=== PATIENT | male | born 1945 | race Caucasian/White ===

== ENCOUNTER 2016-10-21 01:18 | Emergency (ER) ==
[2016-10-21] MEDS ORDERED: DUONEB (A & A) INH ONE (01:25)
--- NOTE | 2016-10-21 01:28 | PROVIDER DOCUMENTATION ---
HPI-General Adult - General Stated Complaint: PRODUCTIVE COUGH Time Seen by Provider: 10/21/16 01:25 Source: patient Allergies/Adverse Reactions: Patient Allergies Allergy/AdvReac Type Severity Reaction Status Date / Time No Known Allergies Allergy Verified 10/21/16 01:41 Home Medications: No Home Medications 10/21/16 - History of Present Illness -Gen Adult Nature of Presenting Problems: 71 y/o m presents to the ed with sob and also lethargic. pt states he was hanging out at the [employer] [facility] and one of the workers noticed him wheezing and having sob so she called ems. upon arrival pt was wheezing and c/o upper dorsal shoulder pain. Location of Pain/Injury: reports: upper extremity (right shoulder) Pain Radiation: reports: no radiation Quality of Pain: reports: aching Severity: reports: mild Onset/Duration: reports: just prior to arrival Timing: reports: still present Associated Symptoms: reports: shortness of breath Similar Symptoms Previously?: No Recently seen or treated by another doctor?: No Review of Systems - Adult - REVIEW OF SYSTEMS - ADULT Constitutional: denies: chills, fever Respiratory: reports: shortness of breath. denies: wheezing Neurological: denies: dizziness/vertigo, headache/migraines Past History - Adult - PAST MEDICAL HISTORY-ADULT Review of Records: reports: Old Records Reviewed, Nursing Assessment Review, Medications Reviewed - IMMUNIZATION STATUS Childhood Immunizations: See Nurse Assessment Flu Vaccine: See Nurse Assessment - SOCIAL HISTORY Smoking: non-smoker Substance Use: none/never Alcohol Use Frequency: never Physical Exam-General - PHYSICAL EXAM-ADULT Initial Vital Signs Reviewed: Yes - CONSTITUTIONAL General Appearance: alert, lethargic - EYES Eyes: PERRL/EOMI, pink conjunctivae, fundi clear, no AV nicking - HEAD, EARS, NOSE, MOUTH & THROAT HENMT: normocephalic/atraumatic, moist mucous membranes, normal ENT inspection - NECK Neck: non-tender, full range of motion, supple - RESPIRATORY Respiratory: chest non-tender, wheezing - CARDIOVASCULAR Cardiovascular: normal peripheral pulses, regular rate, rhythm - GASTROINTESTINAL (ABDOMEN) Abdominal Exam: normal bowel sounds, non tender, soft - SKIN Integumentary: normal color, normal turgor, warm/dry Progress - PLAN OF CARE/RESULTS Progress/Plan/Lab Results: plan of care: labs, imaging, medication Laboratory Tests 10/21/16 01:50 WBC 6.47 RBC 4.92 Hgb 15.2 Hct 45.2 MCV 91.9 MCH 30.9 MCHC 33.6 RDW Std Deviation 13.1 Plt Count 157 MPV 10.0 Neut % (Auto) 67.0 Lymph % (Auto) 15.5 L [place] % (Auto) 14.8 H Eos % (Auto) 2.5 Baso % (Auto) 0.2 Neut # (Auto) 4.34 Lymph # (Auto) 1.00 L [place] # (Auto) 0.96 H Eos # (Auto) 0.16 Baso # (Auto) 0.01 Orders Category Date Time Status Cardiac Monitoring DIRECTED Care 10/21/16 01:23 Active Saline Loc NOW Care 10/21/16 01:23 Inactive CHEST-PORTABLE [RAD] Stat Exams 10/21/16 01:24 Taken CBC WITH ELECTRONIC DIFF [HEME] Stat Lab 10/21/16 01:50 Completed CK PROFILE [SP CHEM] Stat Lab 10/21/16 01:50 Received COMPREHENSIVE METABOLIC PANEL [CHEM] Stat Lab 10/21/16 01:50 Received PRO B-NATRIURETIC PEPTIDE Stat Lab 10/21/16 01:50 Received TROPONIN T Stat Lab 10/21/16 01:50 Received Albuterol 2.5MG/Ipratrop 0.5MG [Duoneb (A & A)] Med 10/21/16 01:25 Discontinued 3 ml INH NOW ONE Aerosol Treatments Routine Oth 10/21/16 01:26 Completed Aerosol Treatments Stat Oth 10/21/16 01:26 Completed EKG [EKG] Stat Ther 10/21/16 01:23 Ordered Vital Signs - 24 hr 10/21/16 10/21/16 01:34 02:00 Temperature 98.5 F Pulse Rate 92 H 88 Respiratory 24 16 Rate Blood Pressure 164/83 O2 Sat by Pulse 95 Oximetry - EKG 1 Time of EKG reading by physician:: 02:04 EKG Read and Signed by:: Albert Em Rate: 83 Rhythm: NSR [place]: normal QRS: normal MA Interval: normal - XRAY 1 XRAY Study: Chest XRAY Interpretation: NAD Departure - Departure Time of Disposition Order: 02:08 DIAGNOSIS: Asthmatic bronchitis Qualifiers: Asthma severity: unspecified severity Asthma complication type: with acute exacerbation Qualified Code(s): J45.901 - Unspecified asthma with (acute) exacerbation Disposition: HOME 01 Certified Medical Emergency: Emergent Condition: Stable Additional Instructions: ED Follow Up Instructions: You have been treated by a care provider in the Emergency Department. These instructions are being provided to you so you can have an understanding of how to care for yourself upon discharge. Upon discharge from the Emergency Department, you are responsible for making arrangements for follow-up care by a physician of your choice. Take all prescribed medications as directed. Return to the Emergency Department immediately for any new or worsening symptoms. You may call the Physician Referral phone number at [phone] to obtain a list of Physicians who are taking new patients. Attestation - Scribe Verification/Attestation Scribe:: Bethany Cerna Acting as Scribe for:: Louie Wilkinson Scribe documention review:: This chart was documented by a scribe and accurately reflects the service the provider performed and the decisions made by the provider.
[2016-10-21 02:01] LABS: MANUAL DIFF NEEDED? NO
[2016-10-21 02:04] LABS: BASO% 0.2 % (0.0-0.8); EOS# 0.16 X1000 (0.0-0.7); EOS% 2.5 % (0.0-10.0); HEMATOCRIT 45.2 % (42.0-52.0); HEMOGLOBIN 15.2 g/dL (14.0-18.0); LYMPH% 15.5 % (20.5-51.1); MCH 30.9 PG (27-31); MCHC 33.6 g/dL (33-37); MCV 91.9 FL (81-99); MONO# 0.96 X1000 (0.11-0.59); MONO% 14.8 % (1.7-9.3); PLT 157 X1000 (130-400); RBC 4.92 XMIL (4.7-6.1)
[2016-10-21] MEDS ORDERED: DECADRON IM ONE (02:08)
[2016-10-21 02:32] LABS: AGAP 13; ALBUMIN 3.7 g/dL (3.5-5.0); ALKALINE PHOSPHATASE 106 U/L (32-122); BUN 13 mg/dL (8-22); CALCIUM 8.6 mg/dL (8.8-10.2); CHLORIDE 95 mmol/L (98-107); COSMO 265; GOT 41 U/L (10-34); GPT 35 U/L (10-44); POTASSIUM 4.3 mmol/L (3.5-5.1); SODIUM 131 mmol/L (136-145); TCO2 23 mmol/L (25-35); TOTAL BILIRUBIN 0.31 mg/dL (0.20-1.00); TOTAL PROTEIN 6.5 g/dL (6.3-8.3)
[2016-10-21 02:38] LABS: CK PROFILE 307 U/L (24-204)
[2016-10-21 02:49] VITALS: BP 169/89
[2016-10-21 02:57] LABS: CK INDEX 1.2 (0.0-2.5); CK-MB 3.59 ng/mL (0.0-5.0)
--- NOTE | 2016-10-21 05:26 | EKG Report ---
Test Performed on : 10/21/2016 02:01:32 AM Test Reason : SOB Blood Pressure : / mmHG Vent. Rate : 083 BPM Atrial Rate : 083 BPM P-R Int : 154 ms QRS Dur : 096 ms QT Int : 360 ms P-R-T Axes : 026 -17 038 degrees QTc Int : 423 ms Normal sinus rhythm. Inferior infarct , age undetermined Abnormal ECG No previous ECGs available Unconfirmed Result
--- NOTE | 2016-10-21 07:38 | Diag Imaging Result Document ---
PROCEDURE NAME: CHEST-PORTABLE - 10/21/2016 AP PORTABLE CHEST, ERECT: TIME: 0150 hours. FINDINGS: There is some increased interstitial markings. No previous studies are available for comparison. The heart size is the upper limits of normal, and there is prominence of the central pulmonary vascularity. IMPRESSION: Mild interstitial pulmonary edema.
== END 2016-10-21 02:58 | disposition home or self-care (01) ==
LOC: EDBD → ED 01:18
DX: J45.901 Unspecified asthma with (acute) exacerbation (principal); R05 Cough; R09.3 Abnormal sputum; R06.02 Shortness of breath; R53.83 Other fatigue; R06.2 Wheezing; M25.511 Pain in right shoulder
CPT/HCPCS: 71010; 80053; 82550; 82553; 83880; 84484; 85025; 93005; 94640; 96372

== ENCOUNTER 2016-12-12 13:46 | Emergency (ER) | payer OTHER ==
[2016-12-12 14:00] VITALS: BP 146/72
--- NOTE | 2016-12-12 14:20 | PROVIDER DOCUMENTATION ---
HPI-General Adult - General Chief Complaint: Shoulder Pain Stated Complaint: shoulder pain Time Seen by Provider: 12/12/16 13:59 Source: patient Allergies/Adverse Reactions: Patient Allergies Allergy/AdvReac Type Severity Reaction Status Date / Time No Known Allergies Allergy Verified 12/12/16 14:00 Home Medications: Home Medication List Medication Instructions Recorded Confirmed Last Taken Type Amlodipine [Norvasc] 5 mg PO DAILY #30 tablet 11/18/16 12/12/16 Rx Lisinopril 20 mg PO DAILY #30 tablet 11/18/16 12/12/16 Rx Metformin [Glucophage] 500 mg PO BID CC #60 tablet 11/18/16 12/12/16 Rx - History of Present Illness -Gen Adult Nature of Presenting Problems: Pt is 71 y/o M presents to the ED with bilateral shoulder pain. Pt states history of gout. Pt denies recent trauma or injury to shoulders. Pt states he needs his monthly meds. Location of Pain/Injury: reports: upper extremity (bilateral shoulders) Pain Radiation: reports: no radiation Quality of Pain: reports: aching Severity: reports: mild Onset/Duration: reports: unsure Timing: reports: still present Context/Activities at Onset: reports: light activity Modifying Factors: improves with: nothing Associated Symptoms: reports: denies symptoms Similar Symptoms Previously?: Yes Recently seen or treated by another doctor?: No Review of Systems - Adult - REVIEW OF SYSTEMS - ADULT Constitutional: denies: chills, fever Eyes: denies: blurred vision, double vision Ears, Nose, Mouth & Throat: denies: ear pain, nose pain, throat pain Cardiovascular: denies: chest pain, heart murmur, irregular heart rate Respiratory: denies: cough, shortness of breath, wheezing Gastrointestinal: denies: abdominal pain, diarrhea, nausea, vomiting Genitourinary: denies: dysuria, hematuria Musculoskeletal: reports: other (bilateral shoulder pain). denies: bone pain, joint pain, neck pain Integumentary: denies: hives, itching Neurological: denies: dizziness/vertigo, headache/migraines Psychiatric: reports: no symptoms reported Endocrine: reports: no symptoms reported Hematologic/Lymphatic: reports: no symptoms reported Allergic/Immunologic: reports: no symptoms reported All Other Systems: Reviewed and Negative Past History - Adult - PAST MEDICAL HISTORY-ADULT Review of Records: reports: Nursing Assessment Review, Medications Reviewed, Social history reviewed & non-contributory. Major Childhood Illnesses: reports: denies history Cardiovascular: reports: cardiac disease, CAD, CHF, HTN Respiratory: reports: COPD Gastrointestinal: reports: denies history Obstetrical/Gynecological: reports: denies history Genitourinary: reports: denies history Musculoskeletal: reports: chronic pain (back), neck/back injury Neurological: reports: denies history Psychiatric: reports: schizophrenia Endocrine/Immune: reports: Diabetes Other Conditions: reports: denies history - PRIOR SURGERIES/PROCEDURES Surgical/Procedure History: reports: appendectomy, cardiac stent - PRIOR HOSPITALIZATIONS Prior Hospitalizations: reports: for similar symptoms, for other non-related, psychiatric or rehab - IMMUNIZATION STATUS Childhood Immunizations: See Nurse Assessment Flu Vaccine: See Nurse Assessment - FAMILY HISTORY Family History: reviewed, not pertinent - SOCIAL HISTORY Smoking: cigarettes, greater than 1 pack/day Provider spent 3-5 mins advising pt. on dangers of tobacco.: Discussed manners to quit use, and f/u contacts for add'l counseling. Substance Use: denies Living Situation: family Physical Exam-General - PHYSICAL EXAM-ADULT Initial Vital Signs Reviewed: Yes - CONSTITUTIONAL General Appearance: appears well, alert, no apparent distress - EYES Eyes: PERRL/EOMI, pink conjunctivae, fundi clear, no AV nicking - HEAD, EARS, NOSE, MOUTH & THROAT HENMT: normocephalic/atraumatic, moist mucous membranes, normal ENT inspection, TMs normal, pharynx normal - NECK Neck: non-tender, full range of motion, supple, normal inspection - RESPIRATORY Respiratory: chest non-tender, lungs clear, normal breath sounds, no pleuratic chest pain, no respiratory distress, no accessory muscle use - CARDIOVASCULAR Cardiovascular: normal peripheral pulses, regular rate, rhythm, no edema, no gallop, no JVD, no murmur - GASTROINTESTINAL (ABDOMEN) Abdominal Exam: normal bowel sounds, non tender, soft, no organomegaly, no pulsatile mass - LYMPHATIC Lymphatic: no adenopathy - MUSCULOSKELETAL Back Exam: normal inspection, no CVA tenderness, no vertebral tenderness Extremity: normal range of motion, non-tender, normal gait, normal inspection, no pedal edema, no calf tenderness - SKIN Integumentary: normal color, normal turgor, warm/dry - NEUROLOGIC 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: 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, grossly normal, no motor/sensory deficits - PSYCHIATRIC Psych/Mental Status: normal mood/affect, normal thought content, normal thought process, oriented x 3 Progress - PLAN OF CARE/RESULTS Progress/Plan/Lab Results: Vital Signs - 24 hr 12/12/16 13:48 Pulse Rate 83 Respiratory 20 Rate Blood Pressure 146/72 O2 Sat by Pulse 96 Oximetry Orders Category Date Time Status FSBS [Finger Stick Blood Sugar (ED)] DIRECTED Care 12/12/16 14:21 Inactive Departure - Departure Time of Disposition Order: 14:26 DIAGNOSIS: Shoulder pain, bilateral Qualifiers: Chronicity: unspecified Qualified Code(s): M25.511 - Pain in right shoulder; M25.512 - Pain in left shoulder Disposition: HOME 01 Certified Medical Emergency: Emergent Condition: Stable Additional Instructions: ED Follow Up Instructions: You have been treated by a care provider in the Emergency Department. These instructions are being provided to you so you can have an understanding of how to care for yourself upon discharge. Upon discharge from the Emergency Department, you are responsible for making arrangements for follow-up care by a physician of your choice. Take all prescribed medications as directed. Return to the Emergency Department immediately for any new or worsening symptoms. You may call the Physician Referral phone number at [phone] to obtain a list of Physicians who are taking new patients. Attestation - Scribe Verification/Attestation Scribe:: Magnolia Corbin Acting as Scribe for:: James Ovalle Scribe documention review:: This chart was documented by a scribe and accurately reflects the service the provider performed and the decisions made by the provider.
== END 2016-12-12 15:03 | disposition home or self-care (01) ==
LOC: P.ED 13:46
DX: M25.512 Pain in left shoulder (principal); M25.511 Pain in right shoulder; I25.10 Atherosclerotic heart disease of native coronary artery without angina pectoris; I10 Essential (primary) hypertension; J44.9 Chronic obstructive pulmonary disease, unspecified; G89.29 Other chronic pain; M54.9 Dorsalgia, unspecified; E11.9 Type 2 diabetes mellitus without complications; F17.210 Nicotine dependence, cigarettes, uncomplicated; Z71.6 Tobacco abuse counseling; Z95.5 Presence of coronary angioplasty implant and graft
CPT/HCPCS: 99282

== ENCOUNTER 2016-12-17 09:08 | Emergency (ER) | payer OTHER ==
--- NOTE | 2016-12-17 09:43 | PROVIDER DOCUMENTATION ---
HPI-Musculoskeletal Pain/Inj - GENERAL Source: patient - HX OF PRESENT ILLNESS-MUSKULOSKELTAL Quality of Pain: reports: aching Severity in ED: mild Onset/Duration: unsure Timing: still present, intermittent Modifying Factors: improves with: nothing Any recent injury?: No Locality of Occurance: Home Similar Symptoms Previously?: Yes Recently seen or treated by another doctor?: No - FALL INJURY Location of Pain/Injury: reports: none - UPPER EXTREMITY PAIN/INJURY Extremities Pain Location: shoulder: right Context / Method of Injury: reports: unknown Associated Symptoms: reports: weakness in upper ext (L shoulder) <Magnolia Corbin - Last Filed: 12/17/16 10:02> <Moise Reinoso - Last Filed: 12/17/16 10:29> - GENERAL Chief Complaint: Return/Recheck Stated Complaint: RETURN/RECHECK Time Seen by Provider: 12/17/16 09:37 - HX OF PRESENT ILLNESS-MUSKULOSKELTAL Nature of Presenting Problem: Pt is 71 y/o M presents to the ED with R shoulder pain. Pt states the shoulder pain is chronic. Pt denies recent injury or trauma. (Magnolia Corbin) Review of Systems - Adult - REVIEW OF SYSTEMS - ADULT Constitutional: denies: chills, fever Eyes: denies: blurred vision, double vision Ears, Nose, Mouth & Throat: denies: ear pain, nose pain, throat pain Cardiovascular: denies: chest pain, heart murmur, irregular heart rate Respiratory: denies: cough, shortness of breath, wheezing Gastrointestinal: denies: abdominal pain, diarrhea, nausea, vomiting Genitourinary: denies: dysuria, hematuria Musculoskeletal: reports: other (R shoulder). denies: bone pain, joint pain, neck pain Integumentary: denies: hives, itching Neurological: denies: dizziness/vertigo, headache/migraines Psychiatric: reports: no symptoms reported Endocrine: reports: no symptoms reported Hematologic/Lymphatic: reports: no symptoms reported Allergic/Immunologic: reports: no symptoms reported All Other Systems: Reviewed and Negative <Magnolia Corbin - Last Filed: 12/17/16 10:02> Past History - Adult - PAST MEDICAL HISTORY-ADULT Review of Records: reports: Nursing Assessment Review, Medications Reviewed, Social history reviewed & non-contributory. Major Childhood Illnesses: reports: denies history Cardiovascular: reports: cardiac disease, CAD, CHF, HTN Respiratory: reports: COPD Gastrointestinal: reports: denies history Obstetrical/Gynecological: reports: denies history Genitourinary: reports: denies history Musculoskeletal: reports: chronic pain (back), neck/back injury Neurological: reports: denies history Psychiatric: reports: schizophrenia Endocrine/Immune: reports: Diabetes Other Conditions: reports: denies history - PRIOR SURGERIES/PROCEDURES Surgical/Procedure History: reports: appendectomy, cardiac stent - PRIOR HOSPITALIZATIONS Prior Hospitalizations: reports: for similar symptoms, for other non-related, psychiatric or rehab - IMMUNIZATION STATUS Childhood Immunizations: See Nurse Assessment Flu Vaccine: See Nurse Assessment - FAMILY HISTORY Family History: reviewed, not pertinent - SOCIAL HISTORY Smoking: cigarettes, less than 1 pack/day Provider spent 3-5 mins advising pt. on dangers of tobacco.: Discussed manners to quit use, and f/u contacts for add'l counseling. Substance Use: denies Living Situation: family <Torres Corbini - Last Filed: 12/17/16 10:02> Physical Exam-Injury Related - Physical Exam-Injury Related Initial Vital Signs Reviewed: Yes General Appearance: appears well, alert, no apparent distress Eyes: PERRL/EOMI, pink conjunctivae, fundi clear, no AV nicking Head, Ears, Nose, Mouth & Throat: normocephalic/atraumatic, moist mucous membranes, normal ENT inspection, TMs normal, pharynx normal Neck: non-tender, full range of motion, supple, normal inspection Respiratory: chest non-tender, lungs clear, normal breath sounds, no pleuratic chest pain, no respiratory distress, no accessory muscle use Cardiovascular: normal peripheral pulses, regular rate, rhythm, no edema, no gallop, no JVD, no murmur Abdominal Exam: normal bowel sounds, non tender, soft, no organomegaly, no pulsatile mass Lymphatic: no adenopathy Back Exam: normal inspection, no CVA tenderness, no vertebral tenderness Extremity: normal gait, normal inspection, no pedal edema, no calf tenderness, normal capillary refill, pelvis stable, tenderness (R shoulder). 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, grossly normal, no motor/sensory deficits Psych/Mental Status: normal mood/affect, normal thought content, normal thought process, oriented x 3 <Magnolia Corbin - Last Filed: 12/17/16 10:02> Progress <Magnolia Corbin - Last Filed: 12/17/16 10:02> <Moise Reinoso - Last Filed: 12/17/16 10:29> - PLAN OF CARE/RESULTS Progress/Plan/Lab Results: Vital Signs - 24 hr 12/17/16 09:12 Temperature 97.8 F Pulse Rate 84 Respiratory 18 Rate Blood Pressure 138/81 O2 Sat by Pulse 97 Oximetry (Magnolia Corbin) Departure - Departure Time of Disposition Order: 10:03 Certified Medical Emergency: Emergent <Magnolia Corbin - Last Filed: 12/17/16 10:02> - Departure Time of Disposition Order: 10:29 Certified Medical Emergency: Emergent <Moise Reinoso - Last Filed: 12/17/16 10:29> - Departure DIAGNOSIS: Chronic shoulder pain Qualifiers: Laterality: right Qualified Code(s): M25.511 - Pain in right shoulder Disposition: HOME 01 Condition: Stable Additional Instructions: ED Follow Up Instructions: You have been treated by a care provider in the Emergency Department. These instructions are being provided to you so you can have an understanding of how to care for yourself upon discharge. Upon discharge from the Emergency Department, you are responsible for making arrangements for follow-up care by a physician of your choice. Take all prescribed medications as directed. Return to the Emergency Department immediately for any new or worsening symptoms. You may call the Physician Referral phone number at [phone] to obtain a list of Physicians who are taking new patients. Referrals: None,PCP [Primary Care Provider] - Luz Millard DO [STAFF PHYSICIAN] - Attestation - Scribe Verification/Attestation Scribe:: Magnolia Corbin Acting as Scribe for:: Moise Reinoso Scribe documention review:: This chart was documented by a scribe and accurately reflects the service the provider performed and the decisions made by the provider. <Magnolia Corbin - Last Filed: 12/17/16 10:02> Physician Attestation
[2016-12-17] MEDS ORDERED: DEPO-MEDROL IM ONE (09:50)
[2016-12-17 10:45] VITALS: BP 126/064
== END 2016-12-17 10:44 | disposition home or self-care (01) ==
LOC: P.ED 09:08
DX: G89.29 Other chronic pain (principal); M25.511 Pain in right shoulder; M62.81 Muscle weakness (generalized); I25.10 Atherosclerotic heart disease of native coronary artery without angina pectoris; I10 Essential (primary) hypertension; J44.9 Chronic obstructive pulmonary disease, unspecified; M54.9 Dorsalgia, unspecified; E11.9 Type 2 diabetes mellitus without complications; F17.210 Nicotine dependence, cigarettes, uncomplicated; Z71.6 Tobacco abuse counseling; Z95.5 Presence of coronary angioplasty implant and graft
CPT/HCPCS: 82948; 96372; J1040

== ENCOUNTER 2016-12-18 10:20 | Emergency (ER) | payer OTHER ==
[2016-12-18 11:06] LABS: MANUAL DIFF NEEDED? NO
[2016-12-18 11:09] LABS: BASO% 0.2 % (0.0-0.8); EOS% 2.5 % (0.0-10.0); HEMATOCRIT 46.5 % (42.0-52.0); HEMOGLOBIN 16.2 g/dL (14.0-18.0); IMM GRAN# 0.03 X1000 (0.0-0.04); IMM GRAN% 0.4 % (0.0-0.5); LYMPH# 2.01 X1000 (1.2-3.4); MCH 29.9 PG (27-31); MCHC 34.8 g/dL (33-37); MONO# 0.72 X1000 (0.11-0.59); MONO% 8.9 % (1.7-9.3); MPV 9.7 FL (7.4-10.4); PLT 210 X1000 (130-400); RBC 5.41 XMIL (4.7-6.1)
--- NOTE | 2016-12-18 11:22 | Diag Imaging Result Document ---
PROCEDURE NAME: TRAUMA SHOULDER RIGHT - 12/18/2016 RIGHT SHOULDER THREE VIEWS INCLUDING AN AXILLARY Y-VIEW: COMPARISON: Compared to 11/14/2016. FINDINGS: No separation at the acromioclavicular joint. No fracture. No dislocation. No change in appearance compared to the prior exam. There are mild arthritic changes. IMPRESSION: Stable exam.
[2016-12-18 11:25] LABS: AGAP 16; ALBUMIN 4.1 g/dL (3.5-5.0); ALKALINE PHOSPHATASE 102 U/L (32-122); BUN 6 mg/dL (8-22); CALCIUM 8.7 mg/dL (8.8-10.2); CHLORIDE 96 mmol/L (98-107); COSMO 268; GOT 23 U/L (10-34); GPT 26 U/L (10-44); POTASSIUM 4.6 mmol/L (3.5-5.1); SODIUM 134 mmol/L (136-145); TCO2 22 mmol/L (25-35); TOTAL BILIRUBIN 0.28 mg/dL (0.20-1.00); TOTAL PROTEIN 6.8 g/dL (6.3-8.3)
--- NOTE | 2016-12-18 11:38 | PROVIDER DOCUMENTATION ---
HPI-Psychological Disorder - General Chief Complaint: Psych Stated Complaint: RT SHOULDER PAIN Time Seen by Provider: 12/18/16 10:29 Source: patient Allergies/Adverse Reactions: Patient Allergies Allergy/AdvReac Type Severity Reaction Status Date / Time No Known Allergies Allergy Verified 12/12/16 14:00 Home Medications: Home Medication List Medication Instructions Recorded Confirmed Last Taken Type Amlodipine [Norvasc] 5 mg PO DAILY #30 tablet 11/18/16 12/12/16 Rx Lisinopril 20 mg PO DAILY #30 tablet 11/18/16 12/12/16 Rx Metformin [Glucophage] 500 mg PO BID CC #60 tablet 11/18/16 12/12/16 Rx Methocarbamol [Robaxin-750] 1,500 mg PO Q6-8H PRN PRN #40 12/12/16 Unknown Rx tablet Nitroglycerin 0.4 mg SL 3-4XDAY PRN PRN #50 12/12/16 Unknown Rx tab.subl - History of Present Illness-Psych Nature of Presenting Problem: Pt is a 71 y/o M c chief complaint of R shoulder pain that is chronic in nature , emotional distress, and suicidal thoughts. Pt is brought to the ER by his friend who states the pt lives in a trailer [place] his [place]. Today the friend was checking on him and the pt was stating he was going to kill himself because he was tired of living with the pain in his shoulder. Friend states the pt was also speaking in rapid manner and was not able to hold a conversation. Per friends, pt has a h/o mental health disorder. On arrival, pt is tearful and speaking in flight of ideas. Review of Systems - Adult - REVIEW OF SYSTEMS - ADULT Constitutional: reports: no symptoms reported. denies: chills, fatique Eyes: reports: no symptoms reported. denies: blurred vision, double vision Ears, Nose, Mouth & Throat: reports: no symptoms reported. denies: ear pain, nose pain Cardiovascular: reports: no symptoms reported. denies: chest pain, irregular heart rate Respiratory: reports: no symptoms reported. denies: cough, shortness of breath Gastrointestinal: reports: no symptoms reported. denies: abdominal pain, nausea Genitourinary: reports: no symptoms reported. denies: dysuria, flank pain, frequent UTI's Musculoskeletal: reports: bone pain, joint pain Integumentary: reports: no symptoms reported. denies: itching, rash Neurological: reports: no symptoms reported. denies: numbness, paresthesia Psychiatric: reports: anxiety, alcohol/drug dependence, depression, emotional problems, panic attacks, suicidal thoughts Endocrine: reports: no symptoms reported Hematologic/Lymphatic: reports: no symptoms reported Allergic/Immunologic: reports: no symptoms reported All Other Systems: Reviewed and Negative Past History - Adult - PAST MEDICAL HISTORY-ADULT Review of Records: reports: Old Records Reviewed, Nursing Assessment Review, Medications Reviewed, Social history reviewed & non-contributory. Major Childhood Illnesses: reports: denies history Cardiovascular: reports: cardiac disease, CAD, CHF, HTN Respiratory: reports: COPD Gastrointestinal: reports: denies history Obstetrical/Gynecological: reports: denies history Genitourinary: reports: denies history Musculoskeletal: reports: chronic pain (back), neck/back injury Neurological: reports: denies history Psychiatric: reports: schizophrenia Endocrine/Immune: reports: Diabetes Other Conditions: reports: denies history - PRIOR SURGERIES/PROCEDURES Surgical/Procedure History: reports: appendectomy, cardiac stent - PRIOR HOSPITALIZATIONS Prior Hospitalizations: reports: for similar symptoms, for other non-related, psychiatric or rehab - IMMUNIZATION STATUS Childhood Immunizations: See Nurse Assessment Flu Vaccine: See Nurse Assessment - FAMILY HISTORY Family History: reviewed, not pertinent Physical Exam-Psych Focus - Physical Exam-Psych Initial Vital Signs Reviewed: Yes Appearance: no apparent distress, anxious, impaired insight (flight of ideas, circular thought patterns, unable to focus on questions) 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 nml as tested, agitated, anxious Behavior/Eye Contact/Speech: cooperative, avoids eye contact, increased rate of speech, compulsive Thoughts/Hallucinations: flight of ideas HENMT: normocephalic/atraumatic, moist mucous membranes, normal ENT inspection Neck: non-tender, full range of motion, supple Respiratory: chest non-tender, lungs clear, normal breath sounds Cardiovascular: normal peripheral pulses, regular rate, rhythm, no edema Abdominal Exam: normal bowel sounds, non tender, soft Lymphatic: no adenopathy Back Exam: normal inspection, no CVA tenderness, no vertebral tenderness Extremity: normal range of motion, non-tender, normal gait, other (NO SHOULDER PAIN OR LIMITATIONS IN ROM) Integumentary: normal color, normal turgor, warm/dry Progress - PLAN OF CARE/RESULTS Progress/Plan/Lab Results: Orders Category Date Time Status Regular Diet Diet 12/18/16 12:34 Active CHEST-PORTABLE [RAD] Stat Exams 12/18/16 11:48 Completed HEAD W/O CONTRAST [CT] Stat Exams 12/18/16 11:48 Completed TRAUMA SHOULDER RIGHT [RAD] Stat Exams 12/18/16 10:29 Completed ALCOHOL BLOOD Stat Lab 12/18/16 10:56 Completed CBC WITH ELECTRONIC DIFF [HEME] Stat Lab 12/18/16 10:56 Completed COMPREHENSIVE METABOLIC PANEL [CHEM] Stat Lab 12/18/16 10:56 Completed FOLATE Stat Lab 12/18/16 11:51 Completed FREE T4 Stat Lab 12/18/16 10:56 Completed MAGNESIUM [CHEM] Stat Lab 12/18/16 11:51 Completed RPR [SERO] Stat Lab 12/18/16 11:51 Completed TSH Stat Lab 12/18/16 10:56 Completed URINALYSIS W/POSS RFLX CULT [URINALYSIS] Stat Lab 12/18/16 11:51 Completed URINE DRUG SCREEN Stat Lab 12/18/16 11:51 Completed VITAMIN B12 Stat Lab 12/18/16 10:56 Completed EKG [EKG] Stat Ther 12/18/16 11:47 Ordered Laboratory Tests 12/18/16 12/18/16 12/18/16 10:56 10:56 10:56 WBC 8.05 RBC 5.41 Hgb 16.2 Hct 46.5 MCV 86.0 MCH 29.9 MCHC 34.8 RDW Std Deviation 13.4 Plt Count 210 MPV 9.7 Immature Gran % (Auto) 0.4 Neut % (Auto) 63.0 Lymph % (Auto) 25.0 [place] % (Auto) 8.9 Eos % (Auto) 2.5 Baso % (Auto) 0.2 Immature Gran # (Auto) 0.03 Neut # (Auto) 5.07 Lymph # (Auto) 2.01 [place] # (Auto) 0.72 H Eos # (Auto) 0.20 Baso # (Auto) 0.02 Sodium 134 L Potassium 4.6 Chloride 96 L Carbon Dioxide 22 L Anion Gap 16 BUN 6 L Creatinine 0.8 Estimated GFR/1.73 m2 > 60 BUN/Creatinine Ratio 8 Glucose 134 H Calculated Osmolality 268 Calcium 8.7 L Magnesium Total Bilirubin 0.28 AST 23 ALT 26 Alkaline Phosphatase 102 Total Protein 6.8 Albumin 4.1 Globulin 2.7 Albumin/Globulin Ratio 1.5 Vitamin B12 Folate TSH Free T4 Urine Source Urine Color Urine Turbidity Urine pH Ur Specific [place] Urine Protein Ur Glucose (Stick) Ur Ketones (Stick) Urine Blood Urine Nitrite Urine Bilirubin Urobilinogen Dipstick Urine Leukocytes Urine WBC (Auto) Urine RBC (Auto) U Epithel Cells (Auto) Urine Bacteria (Auto) Urine Opiates Screen Ur Oxycodone Screen Ur Methadone, Qual Ur Barbiturates Screen Ur Phencyclidine Scrn Ur Amphetamines Screen U Benzodiazepines Scrn Urine Cocaine Screen U Cannabinoids Screen Plasma/Serum Ethyl Alc RPR 12/18/16 12/18/16 12/18/16 10:56 11:51 11:51 WBC RBC Hgb Hct MCV MCH MCHC RDW Std Deviation Plt Count MPV Immature Gran % (Auto) Neut % (Auto) Lymph % (Auto) [place] % (Auto) Eos % (Auto) Baso % (Auto) Immature Gran # (Auto) Neut # (Auto) Lymph # (Auto) [place] # (Auto) Eos # (Auto) Baso # (Auto) Sodium Potassium Chloride Carbon Dioxide Anion Gap BUN Creatinine Estimated GFR/1.73 m2 BUN/Creatinine Ratio Glucose Calculated Osmolality Calcium Magnesium 2.1 Total Bilirubin AST ALT Alkaline Phosphatase Total Protein Albumin Globulin Albumin/Globulin Ratio Vitamin B12 260 Folate 19.5 TSH 0.56 Free T4 1.23 Urine Source Urine Color Urine Turbidity Urine pH Ur Specific [place] Urine Protein Ur Glucose (Stick) Ur Ketones (Stick) Urine Blood Urine Nitrite Urine Bilirubin Urobilinogen Dipstick Urine Leukocytes Urine WBC (Auto) Urine RBC (Auto) U Epithel Cells (Auto) Urine Bacteria (Auto) Urine Opiates Screen Ur Oxycodone Screen Ur Methadone, Qual Ur Barbiturates Screen Ur Phencyclidine Scrn Ur Amphetamines Screen U Benzodiazepines Scrn Urine Cocaine Screen U Cannabinoids Screen Plasma/Serum Ethyl Alc RPR 12/18/16 12/18/16 12/18/16 11:51 11:51 11:51 WBC RBC Hgb Hct MCV MCH MCHC RDW Std Deviation Plt Count MPV Immature Gran % (Auto) Neut % (Auto) Lymph % (Auto) [place] % (Auto) Eos % (Auto) Baso % (Auto) Immature Gran # (Auto) Neut # (Auto) Lymph # (Auto) [place] # (Auto) Eos # (Auto) Baso # (Auto) Sodium Potassium Chloride Carbon Dioxide Anion Gap BUN Creatinine Estimated GFR/1.73 m2 BUN/Creatinine Ratio Glucose Calculated Osmolality Calcium Magnesium Total Bilirubin AST ALT Alkaline Phosphatase Total Protein Albumin Globulin Albumin/Globulin Ratio Vitamin B12 Folate TSH Free T4 Urine Source CLEAN CATCH Urine Color STRAW Urine Turbidity CLEAR Urine pH 7.5 Ur Specific [place] 1.004 Urine Protein NEGATIVE Ur Glucose (Stick) NEGATIVE Ur Ketones (Stick) NEGATIVE Urine Blood NEGATIVE Urine Nitrite NEGATIVE Urine Bilirubin NEGATIVE Urobilinogen Dipstick NORMAL Urine Leukocytes NEGATIVE Urine WBC (Auto) <10 Urine RBC (Auto) <10 U Epithel Cells (Auto) <10 Urine Bacteria (Auto) NEGATIVE Urine Opiates Screen NONE DETECTED Ur Oxycodone Screen NONE DETECTED Ur Methadone, Qual NONE DETECTED Ur Barbiturates Screen NONE DETECTED Ur Phencyclidine Scrn NONE DETECTED Ur Amphetamines Screen NONE DETECTED U Benzodiazepines Scrn NONE DETECTED Urine Cocaine Screen NONE DETECTED U Cannabinoids Screen NONE DETECTED Plasma/Serum Ethyl Alc RPR NON-REACTIVE Vital Signs - 24 hr 12/18/16 10:23 Temperature 97.9 F Pulse Rate 93 H Respiratory 20 Rate Blood Pressure 171/81 O2 Sat by Pulse 97 Oximetry - REASSESSMENT Reassessment #1 Time Reassessed: 18:19 (Pt spoke genia Castillour Hussein and he will be signing a safety plan and d/c c family.) - XRAY 1 XRAY: Right XRAY Study: Shoulder Impression: Normal, See EMR Report 2 XRAY Study: Chest Impression: Normal, See EMR Report - CT/MRI 1 CT Study: Head Impression: Normal, See EMR Report Departure - Departure Time of Disposition Order: 18:20 DIAGNOSIS: Passive suicidal ideations Chronic shoulder pain Qualifiers: Laterality: right Qualified Code(s): M25.511 - Pain in right shoulder; G89.29 - Other chronic pain Depression Qualifiers: Depression Type: unspecified Qualified Code(s): F32.9 - Major depressive disorder, single episode, unspecified Disposition: HOME 01 Certified Medical Emergency: Emergent Condition: Stable Additional Instructions: FOLLOW UP WITH OUT-PATIENT PSYCH ED Follow Up Instructions: You have been treated by a care provider in the Emergency Department. These instructions are being provided to you so you can have an understanding of how to care for yourself upon discharge. Upon discharge from the Emergency Department, you are responsible for making arrangements for follow-up care by a physician of your choice. Take all prescribed medications as directed. Return to the Emergency Department immediately for any new or worsening symptoms. You may call the Physician Referral phone number at [phone] to obtain a list of Physicians who are taking new patients. Referrals: None,PCP [Primary Care Provider] - [facility] [Provider Group] Attestation - Physician/ JAYLIN Attestation Patient care was provided by Advanced Practice Provider:: Yes Advanced Practice Provider:: Guillermo Lopez Advanced Practice Provider documentation review:: The Mid-level provider documentation, treatment plan and medical decision making was reviewed by the physician who agrees with all treatment and medical decision making by the MLP.
[2016-12-18 12:00] LABS: URINE CULTURE NEEDED? NO; URINE MICRO REVIEW NEEDED? NO; URINE SOURCE CLEAN CATCH
[2016-12-18 12:04] LABS: BILIRUBIN URINE NEGATIVE (NEGATIVE); BLOOD URINE NEGATIVE (NEGATIVE); COLOR STRAW; GLUCOSE URINE NEGATIVE (NEGATIVE); LEUKOCYTES URINE NEGATIVE (NEGATIVE); NITRITE URINE NEGATIVE (NEGATIVE); PH URINE 7.5; PROTEIN URINE NEGATIVE (NEGATIVE); SP GRAVITY URINE 1.004; TURBIDITY URINE CLEAR (CLEAR); UROBILINOGEN URINE NORMAL (NORMAL)
[2016-12-18 12:06] LABS: UR EPITHELIAL CELLS <10 /HPF (<10); URINE BACTERIA NEGATIVE /HPF; URINE RBC <10 /HPF (<10); URINE WBC <10 /HPF (<10)
[2016-12-18 12:15] LABS: UR AMPHETAMINES QUAL NONE DETECTED (NONE DETECT); UR BARBITUATES QUAL NONE DETECTED (NONE DETECT); UR BENZODIAZEPIN QUAL NONE DETECTED (NONE DETECT); UR CANNABINOIDS QUAL NONE DETECTED (NONE DETECT); UR COCAINE QUAL NONE DETECTED (NONE DETECT); UR METHADONE QUAL NONE DETECTED (NONE DETECT); UR OPIATES QUAL NONE DETECTED (NONE DETECT); UR OXYCODONE QUAL NONE DETECTED (NONE DETECT); UR PCP QUAL NONE DETECTED (NONE DETECT)
[2016-12-18 12:43] LABS: FREE T4 1.23 ng/dL (0.93-1.70)
--- NOTE | 2016-12-18 14:20 | Diag Imaging Result Document ---
PROCEDURE NAME: HEAD W/O CONTRAST - 12/18/2016 CT BRAIN WITHOUT CONTRAST. DOSE REDUCTION PROTOCOL: FINDINGS: No parenchymal hemorrhage. No epidural or subdural hematoma. No subarachnoid hemorrhage. No mass identified on this noncontrasted exam. No sinus opacification. No air fluid levels. IMPRESSION: 1. No hemorrhage. 2. Minimal microvascular ischemic changes. A preliminary report was given at 12:58 p.m.
--- NOTE | 2016-12-18 14:39 | Diag Imaging Result Document ---
PROCEDURE NAME: CHEST-PORTABLE - 12/18/2016 PORTABLE CHEST: COMPARISON: 11/18/16 FINDINGS: The lungs are well expanded. The heart is not enlarged. There are no infiltrates. No pleural effusions identified. The vessels are not distended. IMPRESSION: Negative chest.
[2016-12-18 18:40] VITALS: BP 146/79
== END 2016-12-18 19:30 | disposition home or self-care (01) ==
LOC: ED 10:20
DX: M25.511 Pain in right shoulder (principal); F32.9 Major depressive disorder, single episode, unspecified; R45.851 Suicidal ideations; I25.10 Atherosclerotic heart disease of native coronary artery without angina pectoris; I10 Essential (primary) hypertension; J44.9 Chronic obstructive pulmonary disease, unspecified; G89.29 Other chronic pain; M54.9 Dorsalgia, unspecified; E11.9 Type 2 diabetes mellitus without complications; Z95.5 Presence of coronary angioplasty implant and graft
CPT/HCPCS: 70450; 71010; 80053; 81001; 82607; 82746; 83735; 84439; 84443; 85025; 86592; 93005; G0480; 80320; 80324; 80345; 80346; 80349; 80353; 80358; 80361; 80365; 83992

== ENCOUNTER 2016-12-23 19:03 | Emergency (ER) | payer OTHER ==
[2016-12-23 19:21] VITALS: BP 178/100
[2016-12-23] MEDS ORDERED: TORADOL IM ONE (19:40)
--- NOTE | 2016-12-23 20:11 | PROVIDER DOCUMENTATION ---
HPI-General Adult - General Source: patient - History of Present Illness -Gen Adult Nature of Presenting Problems: PT IS A 71YOM PRESENTING TO ED C/O GENERAL PAIN. PT STATES WAS SEEN BY Jim SMITH LAST WEEK FOR SI. TODAY PT IS HERE COMPLAINING OF BILAT KNEE AND HIP PAIN, RIGHT SHOULDER PAIN AND DYSURIA WITH RETENTION. PT CLEARLY HAS SOME MENTAL ISSUES BC HE WILL SCREAM AND CURSE ONE MOMENT THEN APOLOGIZING THE NEXT MIN. NO OTHER COMPLAINTS NOTED AT THIS TIME Location of Pain/Injury: reports: generalized Pain Radiation: reports: no radiation Quality of Pain: reports: aching, cramping, throbbing Severity: reports: moderate Onset/Duration: reports: 2 days ago Timing: reports: still present Context/Activities at Onset: reports: light activity Modifying Factors: improves with: nothing Associated Symptoms: reports: anxiety, fatigue, genitourinary problems, joint pain, malaise, muscle aches. denies: back/neck pain, chest pain, diaphoresis, diarrhea, dizziness, shortness of breath, trouble walking Similar Symptoms Previously?: No Recently seen or treated by another doctor?: Yes (Jim SMITH SAW LAST WEEK FOR SI) <Micki Pickett - Last Filed: 12/23/16 20:05> <Albert Mcmahon - Last Filed: 12/23/16 20:21> - General Chief Complaint: Extremity Pain Stated Complaint: EXTREMITY PAIN Time Seen by Provider: 12/23/16 20:05 Allergies/Adverse Reactions: Patient Allergies Allergy/AdvReac Type Severity Reaction Status Date / Time No Known Allergies Allergy Verified 12/12/16 14:00 Home Medications: Home Medication List Medication Instructions Recorded Confirmed Last Taken Type Amlodipine [Norvasc] 5 mg PO DAILY #30 tablet 11/18/16 12/12/16 Rx Lisinopril 20 mg PO DAILY #30 tablet 11/18/16 12/12/16 Rx Metformin [Glucophage] 500 mg PO BID CC #60 tablet 11/18/16 12/12/16 Rx Methocarbamol [Robaxin-750] 1,500 mg PO Q6-8H PRN PRN #40 12/12/16 Unknown Rx tablet Nitroglycerin 0.4 mg SL 3-4XDAY PRN PRN #50 12/12/16 Unknown Rx tab.subl Review of Systems - Adult - REVIEW OF SYSTEMS - ADULT Constitutional: reports: no symptoms reported Eyes: reports: no symptoms reported Ears, Nose, Mouth & Throat: reports: no symptoms reported Cardiovascular: reports: no symptoms reported Respiratory: reports: no symptoms reported Gastrointestinal: reports: no symptoms reported Genitourinary: reports: see HPI, dysuria, urinary retention, urgency. denies: hematuria Musculoskeletal: reports: see HPI, bone pain, joint pain, muscle aches. denies : neck pain Integumentary: reports: no symptoms reported Neurological: reports: no symptoms reported Psychiatric: reports: see HPI, anxiety, anti-depressant use, depression, emotional problems. denies: suicidal thoughts Endocrine: reports: no symptoms reported Hematologic/Lymphatic: reports: no symptoms reported Allergic/Immunologic: reports: no symptoms reported All Other Systems: Reviewed and Negative <Micki Pickett - Last Filed: 12/23/16 20:05> Past History - Adult - PAST MEDICAL HISTORY-ADULT Major Childhood Illnesses: reports: denies history Cardiovascular: reports: cardiac disease, CAD, CHF, HTN Respiratory: reports: COPD Gastrointestinal: reports: denies history Obstetrical/Gynecological: reports: denies history Genitourinary: reports: denies history Musculoskeletal: reports: chronic pain (back), neck/back injury Neurological: reports: denies history Psychiatric: reports: schizophrenia Endocrine/Immune: reports: Diabetes Other Conditions: reports: denies history - PRIOR SURGERIES/PROCEDURES Surgical/Procedure History: reports: appendectomy, cardiac stent - PRIOR HOSPITALIZATIONS Prior Hospitalizations: reports: for similar symptoms, for other non-related, psychiatric or rehab - IMMUNIZATION STATUS Childhood Immunizations: See Nurse Assessment Flu Vaccine: See Nurse Assessment - FAMILY HISTORY Family History: reviewed, not pertinent - SOCIAL HISTORY Smoking: cigarettes, greater than 1 pack/day Provider spent 3-5 mins advising pt. on dangers of tobacco.: Discussed manners to quit use, and f/u contacts for add'l counseling. Substance Use: alcohol Alcohol Use Frequency: 5-6 times a week Number of drinks per typical drinking period:: 5-10 drinks Living Situation: alone <Micki Pickett - Last Filed: 12/23/16 20:05> Physical Exam-General - PHYSICAL EXAM-ADULT Initial Vital Signs Reviewed: Yes - CONSTITUTIONAL General Appearance: appears well, alert, mild distress, anxious. negative: no apparent distress - EYES Eyes: PERRL/EOMI, pink conjunctivae, fundi clear, no AV nicking - HEAD, EARS, NOSE, MOUTH & THROAT HENMT: normocephalic/atraumatic, moist mucous membranes, normal ENT inspection, TMs normal, pharynx normal - NECK Neck: non-tender, full range of motion, supple, normal inspection - RESPIRATORY Respiratory: chest non-tender, lungs clear, normal breath sounds, no pleuratic chest pain, no respiratory distress, no accessory muscle use - CARDIOVASCULAR Cardiovascular: normal peripheral pulses, regular rate, rhythm, no edema, no gallop, no JVD, no murmur - GASTROINTESTINAL (ABDOMEN) Abdominal Exam: normal bowel sounds, non tender, soft, no organomegaly, no pulsatile mass - MUSCULOSKELETAL Back Exam: normal inspection, no CVA tenderness, no vertebral tenderness Extremity: non-tender, no pedal edema, no calf tenderness, normal capillary refill, pelvis stable, tenderness. 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, grossly normal, no motor/sensory deficits - PSYCHIATRIC Psych/Mental Status: oriented x 3, anxious, disheveled, paranoid <Micki Pickett - Last Filed: 12/23/16 20:05> Progress - PLAN OF CARE/RESULTS Progress/Plan/Lab Results: Orders Category Date Time Status URINALYSIS [URINALYSIS] Stat Lab 12/23/16 20:02 Ordered Ketorolac [Toradol] Med 12/23/16 19:40 Discontinued 60 mg IM NOW ONE Vital Signs - 24 hr 12/23/16 19:14 Temperature 96.9 F L Pulse Rate 84 Respiratory 22 Rate Blood Pressure 178/100 O2 Sat by Pulse 98 Oximetry <Micki Pickett - Last Filed: 12/23/16 20:05> Departure <Micki Pickett - Last Filed: 12/23/16 20:05> - Departure Time of Disposition Order: 20:21 Certified Medical Emergency: Emergent <Albert Mcmahon - Last Filed: 12/23/16 20:21> - Departure DIAGNOSIS: Chronic shoulder pain Qualifiers: Laterality: right Qualified Code(s): M25.511 - Pain in right shoulder; G89.29 - Other chronic pain Disposition: HOME 01 Condition: Stable Additional Instructions: ED Follow Up Instructions: You have been treated by a care provider in the Emergency Department. These instructions are being provided to you so you can have an understanding of how to care for yourself upon discharge. Upon discharge from the Emergency Department, you are responsible for making arrangements for follow-up care by a physician of your choice. Take all prescribed medications as directed. Return to the Emergency Department immediately for any new or worsening symptoms. You may call the Physician Referral phone number at [phone] to obtain a list of Physicians who are taking new patients. Attestation - Scribe Verification/Attestation Scribe:: Micki Pickett Acting as Scribe for:: Albert Mcmahon Scribe documention review:: This chart was documented by a scribe and accurately reflects the service the provider performed and the decisions made by the provider. <Micki Pickett - Last Filed: 12/23/16 20:05> Physician Attestation - Physician Attestation I, the provider, attest to the following statement:: Billy Ashraf Physician documentation Attestation:: This documentation recorded by the scribe accurately reflects the service I personally performed and the decisions made by me. <Micki Pickett - Last Filed: 12/23/16 20:05>
[2016-12-23 20:27] LABS: BILIRUBIN URINE NEGATIVE (NEGATIVE); BLOOD URINE NEGATIVE (NEGATIVE); CLARITY CLEAR (CLEAR); COLOR YELLOW; GLUCOSE URINE NEGATIVE (NEGATIVE); LEUKOCYTES URINE NEGATIVE (NEGATIVE); NITRITE URINE NEGATIVE (NEGATIVE); PROTEIN URINE NEGATIVE (NEGATIVE); URINE SOURCE CLEAN CATCH; UROBILINOGEN URINE NORMAL
[2016-12-23 20:28] LABS: URINE MICROSCOPIC NEEDED? NO
== END 2016-12-23 20:43 | disposition home or self-care (01) ==
LOC: P.ED 19:03
DX: G89.29 Other chronic pain (principal); M25.511 Pain in right shoulder; M25.562 Pain in left knee; M25.561 Pain in right knee; M25.552 Pain in left hip; M25.551 Pain in right hip; R30.0 Dysuria; R33.9 Retention of urine, unspecified; R53.83 Other fatigue; R53.81 Other malaise; M79.1 Myalgia; R39.15 Urgency of urination; I25.10 Atherosclerotic heart disease of native coronary artery without angina pectoris; I10 Essential (primary) hypertension; J44.9 Chronic obstructive pulmonary disease, unspecified; M54.9 Dorsalgia, unspecified; E11.9 Type 2 diabetes mellitus without complications; F17.210 Nicotine dependence, cigarettes, uncomplicated; Z71.6 Tobacco abuse counseling; Z95.5 Presence of coronary angioplasty implant and graft
CPT/HCPCS: 96372; J1885

== ENCOUNTER 2016-12-28 15:14 | Emergency (ER) | payer OTHER ==
[2016-12-28 15:51] LABS: MANUAL DIFF NEEDED? NO
--- NOTE | 2016-12-28 15:58 | PROVIDER DOCUMENTATION ---
HPI-Chest Pain - General Source: patient - History of Present Illness-CP Location: reports: other (LEFT SIDE) Chest Pain Radiation: reports: no radiation Severity in ED: mild Onset/Duration: just prior to arrival Timing: gone now Context/Activities at Onset: reports: moderate activity Modifying Factors: improves with: nothing Associated Symptoms: reports: denies symptoms Nitro Today/Relief: 0.4 mg x 3 Aspirin Treatment Today: 81 mg x 4 Similar Symptoms Previously?: Yes Recently Seen Here or By Another Healthcare Provider: Yes <Soy Olvera - Last Filed: 12/28/16 17:34> <Clinton Hernandez - Last Filed: 12/28/16 17:42> - General Chief Complaint: Chest Pain Stated Complaint: Chest pain Time Seen by Provider: 12/28/16 15:20 Allergies/Adverse Reactions: Patient Allergies Allergy/AdvReac Type Severity Reaction Status Date / Time No Known Allergies Allergy Verified 12/28/16 15:25 Home Medications: Home Medication List Medication Instructions Recorded Confirmed Last Taken Type Amlodipine [Norvasc] 5 mg PO DAILY #30 tablet 11/18/16 12/12/16 Rx Lisinopril 20 mg PO DAILY #30 tablet 11/18/16 12/12/16 Rx Metformin [Glucophage] 500 mg PO BID CC #60 tablet 11/18/16 12/12/16 Rx Methocarbamol [Robaxin-750] 1,500 mg PO Q6-8H PRN PRN #40 12/12/16 Unknown Rx tablet Nitroglycerin 0.4 mg SL 3-4XDAY PRN PRN #50 12/12/16 Unknown Rx tab.subl - History of Present Illness-CP Nature of Presenting Problem: PT STATED "I WAS WALKING TO [facility] AND HAD A SUDDEN ONSET OF A PIN STICKING PAIN ON THE LEFT SIDE OF MY CHEST DENIES SOB STATED AFTER TAKING 3 NITROS OF HIS OWN PRIOR TO ARRIVAL THE PAIN IS GONE." (Soy Olvera) Review of Systems - Adult - REVIEW OF SYSTEMS - ADULT Constitutional: denies: chills, fever, night sweats Eyes: denies: discharge, decreased vision, double vision Ears, Nose, Mouth & Throat: denies: ear pain, mouth swelling, throat pain Cardiovascular: reports: chest pain. denies: irregular heart rate, palpitations Respiratory: denies: cough, shortness of breath, wheezing Gastrointestinal: denies: abdominal pain, diarrhea, nausea, vomiting Genitourinary: denies: dysuria, flank pain, hematuria Musculoskeletal: denies: back pain, joint pain, neck pain Integumentary: denies: hives, itching, rash Neurological: denies: ataxia, headache/migraines, slurred speech Psychiatric: denies: anxiety, depression, emotional problems All Other Systems: Reviewed and Negative <oSy Olvera - Last Filed: 12/28/16 17:34> Past History - Adult - PAST MEDICAL HISTORY-ADULT Cardiovascular: reports: cardiac disease, CAD, CHF, HTN Respiratory: reports: COPD Gastrointestinal: reports: denies history Musculoskeletal: reports: chronic pain (back), neck/back injury Psychiatric: reports: schizophrenia Endocrine/Immune: reports: Diabetes - PRIOR SURGERIES/PROCEDURES Surgical/Procedure History: reports: appendectomy, cardiac stent - PRIOR HOSPITALIZATIONS Prior Hospitalizations: reports: for similar symptoms, for other non-related, psychiatric or rehab - IMMUNIZATION STATUS Childhood Immunizations: See Nurse Assessment Flu Vaccine: See Nurse Assessment - FAMILY HISTORY Family History: reviewed, not pertinent - SOCIAL HISTORY Smoking: greater than 1 pack/day Provider spent 3-5 mins advising pt. on dangers of tobacco.: Discussed manners to quit use, and f/u contacts for add'l counseling. Substance Use: none/never Alcohol Use Frequency: every day Number of drinks per typical drinking period:: 3-4 drinks Living Situation: family <Soy Olvera - Last Filed: 12/28/16 17:34> - PAST MEDICAL HISTORY-ADULT Review of Records: reports: Old Records Reviewed, Nursing Assessment Review, Medications Reviewed, Social history reviewed & non-contributory. <Clinton Hernandez - Last Filed: 12/28/16 17:42> Physical Exam-General - PHYSICAL EXAM-ADULT Initial Vital Signs Reviewed: Yes - CONSTITUTIONAL General Appearance: appears well, alert, no apparent distress - EYES Eyes: PERRL/EOMI, pink conjunctivae, fundi clear, no AV nicking - HEAD, EARS, NOSE, MOUTH & THROAT HENMT: normocephalic/atraumatic, moist mucous membranes, normal ENT inspection, TMs normal, pharynx normal - NECK Neck: non-tender, full range of motion, supple, normal inspection - RESPIRATORY Respiratory: chest non-tender, lungs clear, normal breath sounds, no pleuratic chest pain, no respiratory distress, no accessory muscle use - CARDIOVASCULAR Cardiovascular: normal peripheral pulses, regular rate, rhythm, no edema, no gallop, no JVD, no murmur - GASTROINTESTINAL (ABDOMEN) Abdominal Exam: normal bowel sounds, non tender, soft, no organomegaly, no pulsatile mass - MUSCULOSKELETAL Back Exam: normal inspection, no CVA tenderness, no vertebral tenderness Extremity: normal range of motion, non-tender, normal gait, normal inspection, no pedal edema, no calf tenderness, normal capillary refill - SKIN Integumentary: normal color, normal turgor, warm/dry - PSYCHIATRIC Psych/Mental Status: normal mood/affect, normal thought content, normal thought process, oriented x 3 <Soy Olvera - Last Filed: 12/28/16 17:34> Progress - EKG 1 Time of EKG reading by physician:: 16:11 EKG Read and Signed by:: Clinton Hernandez Rate: 85 Rhythm: NSR [place]: normal QRS: normal ID Interval: normal ST Wave: normal <Soy Olvera - Last Filed: 12/28/16 17:34> <Clinton Hernandez - Last Filed: 12/28/16 17:42> - PLAN OF CARE/RESULTS Progress/Plan/Lab Results: Laboratory Results - last 24 hr 12/28/16 12/28/16 14:55 14:55 WBC 10.24 RBC 5.64 Hgb 16.7 Hct 47.9 MCV 84.9 MCH 29.6 MCHC 34.9 RDW Std Deviation 13.5 Plt Count 271 MPV 9.6 Immature Gran % (Auto) 0.5 Neut % (Auto) 61.7 Lymph % (Auto) 27.1 [place] % (Auto) 8.9 Eos % (Auto) 1.6 Baso % (Auto) 0.2 Immature Gran # (Auto) 0.05 H Neut # (Auto) 6.33 Lymph # (Auto) 2.77 [place] # (Auto) 0.91 H Eos # (Auto) 0.16 Baso # (Auto) 0.02 Troponin T < 0.010 (Soy Olvera) Departure <Soy Olvera - Last Filed: 12/28/16 17:34> - Departure Time of Disposition Order: 17:37 Certified Medical Emergency: Emergent <Clinton Hernandez - Last Filed: 12/28/16 17:42> - Departure DIAGNOSIS: Angina effort Disposition: HOME 01 Condition: Stable Additional Instructions: when you have chest pain stop activity and rest and then take the nitro, don't continue activity. See your doctor this week to tell him what happened and to decide if any further evaluation is indicated ED Follow Up Instructions: You have been treated by a care provider in the Emergency Department. These instructions are being provided to you so you can have an understanding of how to care for yourself upon discharge. Upon discharge from the Emergency Department, you are responsible for making arrangements for follow-up care by a physician of your choice. Take all prescribed medications as directed. Return to the Emergency Department immediately for any new or worsening symptoms. You may call the Physician Referral phone number at [phone] to obtain a list of Physicians who are taking new patients. Referrals: None,PCP [Primary Care Provider] - Physician Attestation
[2016-12-28 15:59] LABS: BASO% 0.2 % (0.0-0.8); EOS# 0.16 X1000 (0.0-0.7); EOS% 1.6 % (0.0-10.0); HEMATOCRIT 47.9 % (42.0-52.0); HEMOGLOBIN 16.7 g/dL (14.0-18.0); IMM GRAN# 0.05 X1000 (0.0-0.04); IMM GRAN% 0.5 % (0.0-0.5); LYMPH# 2.77 X1000 (1.2-3.4); LYMPH% 27.1 % (20.5-51.1); MCH 29.6 PG (27-31); MCHC 34.9 g/dL (33-37); MCV 84.9 FL (81-99); MONO# 0.91 X1000 (0.11-0.59); MONO% 8.9 % (1.7-9.3); MPV 9.6 FL (7.4-10.4); NEUT% 61.7 % (42.2-75.2); PLT 271 X1000 (130-400); RBC 5.64 XMIL (4.7-6.1)
--- NOTE | 2016-12-28 16:59 | EKG Report ---
Test Performed on : 12/28/2016 3:58:36 PM Test Reason : chest pain Blood Pressure : / mmHG Vent. Rate : 085 BPM Atrial Rate : 085 BPM P-R Int : 174 ms QRS Dur : 102 ms QT Int : 348 ms P-R-T Axes : 072 013 052 degrees QTc Int : 414 ms Normal sinus rhythm. Normal ECG When compared with ECG of 18-NOV-2016 14:33, Nonspecific T wave abnormality no longer evident in Lateral leads Unconfirmed Result
[2016-12-28 17:40] VITALS: BP 140/77
== END 2016-12-28 17:50 | disposition home or self-care (01) ==
LOC: P.ED 15:14
DX: I20.8 Other forms of angina pectoris (principal); R07.89 Other chest pain; I25.10 Atherosclerotic heart disease of native coronary artery without angina pectoris; I10 Essential (primary) hypertension; J44.9 Chronic obstructive pulmonary disease, unspecified; G89.29 Other chronic pain; M54.9 Dorsalgia, unspecified; E11.9 Type 2 diabetes mellitus without complications; F17.210 Nicotine dependence, cigarettes, uncomplicated; Z71.6 Tobacco abuse counseling; Z95.5 Presence of coronary angioplasty implant and graft
CPT/HCPCS: 84484; 85025; 93005; 99284

== ENCOUNTER 2017-07-20 00:48 | Inpatient (IN) ==
[2017-07-20 01:24] LABS: ALLEN TEST YES; BE 0.5 mmoll (-3.0-3.0); BLOOD TYPE ARTERIAL; DRAW SITE R RADIAL; METHB 0.8 % (0.0-1.5); O2(CT) 19.2 mL/dL (15.0-23.0); PCO2(98.6) 41 mmHg (35-45); PO2(98.6) 60 mmHg (60-100); SAMPLE BLOOD; SAO2 94.2 % (95.0-100.0); THB 15.6 g/dL (11.5-17.4)
[2017-07-20 01:26] LABS: MODALITY ROOM AIR
[2017-07-20 02:50] LABS: MANUAL DIFF NEEDED? NO
[2017-07-20 02:56] LABS: BASO% 0.2 % (0.0-0.8); EOS# 0.16 X1000 (0.0-0.7); EOS% 1.7 % (0.0-10.0); HEMATOCRIT 43.6 % (42.0-52.0); HEMOGLOBIN 15.1 g/dL (14.0-18.0); IMM GRAN# 0.03 X1000 (0.0-0.04); IMM GRAN% 0.3 % (0.0-0.5); LYMPH# 1.59 X1000 (1.2-3.4); LYMPH% 16.9 % (20.5-51.1); MCH 30.3 PG (27-31); MCHC 34.6 g/dL (33-37); MCV 87.4 FL (81-99); MONO# 1.19 X1000 (0.11-0.59); MONO% 12.7 % (1.7-9.3); MPV 9.6 FL (7.4-10.4); NEUT% 68.2 % (42.2-75.2); PLT 279 X1000 (130-400); RBC 4.99 XMIL (4.7-6.1)
[2017-07-20 03:17] LABS: AGAP 12; ALBUMIN 3.7 g/dL (3.5-5.0); ALKALINE PHOSPHATASE 77 U/L (32-122); BUN 7 mg/dL (8-22); CALCIUM 8.7 mg/dL (8.8-10.2); CHLORIDE 93 mmol/L (98-107); COSMO 266; GOT 19 U/L (10-34); GPT 14 U/L (10-44); MAGNESIUM 1.9 mg/dL (1.5-2.7); POTASSIUM 3.8 mmol/L (3.5-5.1); SODIUM 132 mmol/L (136-145); TCO2 27 mmol/L (25-35); TOTAL PROTEIN 6.6 g/dL (6.3-8.3)
[2017-07-20 04:21] LABS: UR AMPHETAMINES QUAL NONE DETECTED (NONE DETECT); UR BARBITUATES QUAL NONE DETECTED (NONE DETECT); UR BENZODIAZEPIN QUAL NONE DETECTED (NONE DETECT); UR CANNABINOIDS QUAL NONE DETECTED (NONE DETECT); UR COCAINE QUAL NONE DETECTED (NONE DETECT); UR METHADONE QUAL NONE DETECTED (NONE DETECT); UR OPIATES QUAL NONE DETECTED (NONE DETECT); UR OXYCODONE QUAL NONE DETECTED (NONE DETECT); UR PCP QUAL NONE DETECTED (NONE DETECT)
[2017-07-20 04:29] LABS: URINE SOURCE CATH
[2017-07-20 04:38] LABS: BILIRUBIN URINE NEGATIVE (NEGATIVE); CLARITY CLEAR (CLEAR); COLOR YELLOW; GLUCOSE URINE NEGATIVE (NEGATIVE); URINE EPITHELIAL CELLS <10 /HPF (<10); URINE RBC <10 /HPF (<10); URINE WBC <10 /HPF (<10)
[2017-07-20 04:43] LABS: SP GRAVITY URINE 1.015
[2017-07-20 04:44] LABS: BLOOD URINE TRACE (NEGATIVE); LEUKOCYTES URINE NEGATIVE (NEGATIVE); NITRITE URINE NEGATIVE (NEGATIVE); PH URINE 6.5; PROTEIN URINE TRACE mg/dL (NEGATIVE); URINE CULTURE NEEDED? YES
--- NOTE | 2017-07-20 04:51 | PROVIDER DOCUMENTATION ---
This chart was entered by Marlee Diaz Scribe, acting as scribe for Carlitos Cloud MD. HPI-General Adult - General Chief Complaint: Unresponsive Stated Complaint: UNRESPONSIVE,SOB,CP Time Seen by Provider: 07/20/17 01:15 Source: EMS Unable to obtain history due to:: altered Allergies/Adverse Reactions: Patient Allergies Allergy/AdvReac Type Severity Reaction Status Date / Time No Known Allergies Allergy Verified 05/15/17 04:35 Home Medications: Home Medication List Medication Instructions Recorded Confirmed Last Taken Type Aspirin 81 mg PO DAILY 30 Days 01/18/17 07/20/17 1 Day Ago Rx Divalproex E.r. [Depakote ER] 1,500 mg PO QHS 30 Days 01/18/17 07/20/17 1 Day Ago Rx Docusate Sodium [Colace] 100 mg PO BID 30 Days 01/18/17 07/20/17 1 Day Ago Rx LISINOpril [Prinivil] 20 mg PO DAILY 30 Days 01/18/17 07/20/17 1 Day Ago Rx Metformin HCl [Metformin HCl ER] 500 mg PO DAILY #30 tab.er.24h 03/28/17 1 Day Ago Rx Omeprazole [Prilosec] 20 mg PO DAILY@0700 #30 capsule 03/28/17 07/20/17 1 Day Ago Rx Amlodipine [Norvasc] 10 mg PO DAILY 07/20/17 07/20/17 Unknown History Cholecalciferol (Vitamin D3) 2,000 unit PO DAILY 07/20/17 07/20/17 Unknown History [Vitamin D3] Quetiapine Fumarate [Quetiapine 600 mg PO HS 07/20/17 07/20/17 Unknown History Fumarate] SIMVAstatin [Zocor] 40 mg PO QHS 07/20/17 07/20/17 Unknown History - History of Present Illness -Gen Adult Nature of Presenting Problems: 71 Y/O M presents to ED with Unresponsive. Pt was brought in by EMS, EMS states that they were called out to the Pt neighbors house, call states chest pain. Neighbors states that pt was c/o of chest pain and took a NTG. On arrival pt was AMS, pale,diaphoretic, and gargling. Pt became unresponsive. Pt's eyes were equal and reactive, given Narcan in field no repsonse. EMS states that pt went to AA meeting this evening. Pt responds to painful stimuli. Onset/Duration: reports: this evening Timing: reports: still present Review of Systems - Adult - REVIEW OF SYSTEMS - ADULT ROS:: unobtainable per condition (limited responsiveness on arrival.) Constitutional: denies: chills, fever Eyes: reports: no symptoms reported Ears, Nose, Mouth & Throat: reports: no symptoms reported Cardiovascular: reports: no symptoms reported Respiratory: reports: no symptoms reported Gastrointestinal: reports: no symptoms reported Genitourinary: reports: no symptoms reported Musculoskeletal: reports: no symptoms reported Integumentary: reports: no symptoms reported Neurological: reports: no symptoms reported Psychiatric: reports: no symptoms reported Endocrine: reports: no symptoms reported Hematologic/Lymphatic: reports: no symptoms reported Allergic/Immunologic: reports: no symptoms reported All Other Systems: Reviewed and Negative Past History - Adult - PAST MEDICAL HISTORY-ADULT Review of Records: reports: Old Records Reviewed, Nursing Assessment Review, Medications Reviewed, Social history reviewed & non-contributory. Major Childhood Illnesses: reports: denies history Cardiovascular: reports: cardiac disease, HTN Respiratory: reports: COPD Gastrointestinal: reports: denies history Obstetrical/Gynecological: reports: denies history Genitourinary: reports: denies history Musculoskeletal: reports: chronic pain (back), neck/back injury Neurological: reports: denies history Psychiatric: reports: bipolar, depression, psychiatric problems, schizophrenia Endocrine/Immune: reports: Diabetes Other Conditions: reports: denies history - PRIOR SURGERIES/PROCEDURES Surgical/Procedure History: reports: appendectomy, cardiac stent - PRIOR HOSPITALIZATIONS Prior Hospitalizations: reports: for similar symptoms, for other non-related, psychiatric or rehab - IMMUNIZATION STATUS Childhood Immunizations: See Nurse Assessment Flu Vaccine: See Nurse Assessment - FAMILY HISTORY Family History: reviewed, not pertinent - SOCIAL HISTORY Smoking: quit greater than 1 year Substance Use: none/never Alcohol Use Frequency: never Physical Exam-General - CONSTITUTIONAL General Appearance: moderate distress - EYES Eyes: PERRL/EOMI, pink conjunctivae - HEAD, EARS, NOSE, MOUTH & THROAT HENMT: normal ENT inspection, TMs normal, pharynx normal - NECK Neck: non-tender, full range of motion, supple, normal inspection - RESPIRATORY Respiratory: lungs clear, normal breath sounds - CARDIOVASCULAR Cardiovascular: normal peripheral pulses, regular rate, rhythm - GASTROINTESTINAL (ABDOMEN) Abdominal Exam: normal bowel sounds, non tender, soft - LYMPHATIC Lymphatic: no adenopathy - MUSCULOSKELETAL Back Exam: normal inspection, no CVA tenderness, no vertebral tenderness Extremity: normal range of motion, non-tender - SKIN Integumentary: normal color, normal turgor - NEUROLOGIC Neurologic: grossly normal Progress - PLAN OF CARE/RESULTS Progress/Plan/Lab Results: Vital Signs - 8 hr 07/20/17 01:05 Temperature 99.2 F Pulse Rate 82 Respiratory Rate 20 Blood Pressure 127/70 O2 Sat by Pulse Oximetry 91 L Laboratory Results - last 24 hr 07/20/17 01:03 Specimen Type ARTERIAL Sample Site R RADIAL pH 7.40 pCO2 41 pO2 60 HCO3 25.0 Base Excess 0.5 Oxyhemoglobin 87.7 L* ABG O2 Sat (Calculated) 19.2 ABG O2 Saturation 94.2 L ABG Carboxyhemoglobin 6.10 H* ABG Methemoglobin 0.8 Adalberto Test YES A-a O2 Difference 38.0 Total Hemoglobin 15.6 Lactate 0.80 Blood Gas Modality ROOM AIR FiO2 % 21.0 Orders Category Date Time Status Cardiac Monitoring DIRECTED Care 07/20/17 01:00 Active Continue [place] ORDERED Care 07/20/17 01:01 Active CHEST-PORTABLE [RAD] Stat Exams 07/20/17 01:[address] HEAD W/O CONTRAST [CT] Stat Exams 07/20/17 00:50 Ordered ABG [RESP] Routine Lab 07/20/17 01:03 Completed ALCOHOL BLOOD Stat Lab 07/20/17 01:02 Ordered BNP [PRO B-NATRIURETIC PEPTIDE] Stat Lab 07/20/17 01:06 Ordered CBC WITH ELECTRONIC DIFF [HEME] Stat Lab 07/20/17 01:00 Ordered COMPREHENSIVE METABOLIC PANEL [CHEM] Stat Lab 07/20/17 01:00 Ordered Ddimer [D-DIMER PL] [COAG] Stat Lab 07/20/17 01:03 Ordered LIPASE [CHEM] Stat Lab 07/20/17 01:04 Ordered MAGNESIUM [CHEM] Stat Lab 07/20/17 01:04 Ordered PHOSPHORUS [CHEM] Stat Lab 07/20/17 01:04 Ordered PTT [COAG] Stat Lab 07/20/17 01:06 Ordered TROPONIN T Stat Lab 07/20/17 01:00 Ordered TYPE & SCREEN [BBK] Stat Lab 07/20/17 01:06 Ordered Tylenol [ACETAMINOPHEN] [TDM] Stat Lab 07/20/17 01:[address] W/POSS RFLX CULT [URINALYSIS] Stat Lab 07/20/17 01:00 Ordered URINE DRUG SCREEN Stat Lab 07/20/17 01:02 Ordered EKG [EKG] Stat Ther 07/20/17 01:01 Ordered Result Diagrams: 07/20/17 02:44 07/20/17 02:44 - EKG 1 Time of EKG reading by physician:: : EKG Read and Signed by:: Carlitos Cloud EKG Interpretation (*Must complete 3 of following elements*): Normal Rate: 80 Rhythm: NSR Comments: Abnormal ECG - CT/MRI 1 CT Study: Head Impression: Normal (1. mild chronic ischemic white matter disease 2. mild chronic mucosal inflammatory changes of the maxillary sinuses and ethmoid air cells) CT Results: See Notes - CONSULTS/PCP/HOSPITALIST Notification #1 *Consult/PCP/Hospitalist*: Jayla Time Discussed: 04:51 Consult Disposition: Will see in ED Departure - Departure Date of Disposition Decision: 07/20/17 Time of Disposition Decision: 04:44 DIAGNOSIS: Encephalopathy Disposition: ADMITTED INPATIENT 09 Certified Medical Emergency: Emergent Condition: Good - Critical Care Note This patient required my direct & personal management of CC.: No Attestation - Physician/ JAYLIN Attestation Patient care was provided by Advanced Practice Provider:: No The physician spent face to face time with patient:: Yes (only MD for his care) Advanced Practice Provider documentation review:: Supervising physician onsite and consulted in the evaluation and care of this patient. The physician did have a face to face encounter with the patient. This chart was documented by the indicated scribe, (Marlee Diaz Scribe) and accurately reflects the services I performed and decisions made by me, Carlitos Cloud MD, as attested by the provider's signature.
--- NOTE | 2017-07-20 05:58 | Diag Imaging Result Doc PS360 ---
EXAM: CT HEAD W/O CONTRAST HISTORY: [facility] TECHNIQUE: CT brain without contrast. Dose reduction protocol. COMPARISON: 12/18/2016 FINDINGS: No parenchymal hemorrhage. No epidural or subdural hematoma. No subarachnoid hemorrhage. There are mild chronic microvascular ischemic changes. No mass identified on this noncontrasted exam. No hydrocephalus. A small amount of mucus is found in the left maxillary sinus. IMPRESSION: 1.No hemorrhage 2.Mild chronic microvascular ischemic changes 3.A preliminary report was given at 1:07 AM Electronically signed by Floyd Mtz 07/20/2017 5:56 AM
--- NOTE | 2017-07-20 06:03 | Diag Imaging Result Doc PS360 ---
EXAM: CHEST-PORTABLE HISTORY: unresponsive TECHNIQUE: Portable AP COMPARISON: 05/15/2017 FINDINGS: Poor inspiratory effort. Heart is not enlarged. Mild central vascular prominence. I believe there is a tiny left pleural effusion. No consolidation. IMPRESSION: Mild pulmonary edema. Follow-up PA and lateral recommended. Electronically signed by Floyd Mtz 07/20/2017 6:01 AM
[2017-07-20] MEDS ORDERED: DUONEB (A & A) INH PRN (06:45)
[2017-07-20] MEDS ORDERED: LOVENOX SUBQ SCH (06:45)
[2017-07-20] MEDS ORDERED: ZOFRAN IV PRN (06:45)
[2017-07-20] MEDS ORDERED: NS 1,000 ML IV SCH (06:45)
[2017-07-20] MEDS ORDERED: HUMALOG SUBQ SCH (07:00)
[2017-07-20] MEDS ORDERED: PRILOSEC PO SCH (07:00)
--- NOTE | 2017-07-20 07:45 | HISTORY AND PHYSICAL ---
CHIEF COMPLAINT: Unresponsive. HPI: Past medical history was from ER charting, as the patient is very lethargic. He was brought in his responsive. He was initially not able to give any information. He was apparently at a neighbor's house. The call stated that he was having chest pain. I believe took a nitroglycerin. On arrival, very altered, pale, and diaphoretic with garbled speech. Became unresponsive at some point in the emergency room. He had received Narcan that had no effect. CT scan of his head showed mild chronic ischemic white matter disease. An EKG was interpreted by the ER provider. Normal sinus rhythm, rate of 80. Laboratory data was grossly normal. Troponin was negative. Toxicology screen and serum alcohol were also negative. The patient, during my interview, was also still very garbled. He was able to tell me where he was, and his name. He stated he had not taken any drugs or drank alcohol. He reportedly went to an meeting [facility], as he was a recovering alcoholic. He stated over and over again, that he only took pills prescribed by the doctor. The ER provider stated that he felt that he had taken possible pills given to him from someone else. However, the patient did not directly tell me this. At any rate, he will be admitted to CICU for further evaluation and treatment. PAST MEDICAL HISTORY: 1. Diabetes mellitus type 2. 2. Hypertension. 3. Coronary artery disease status post cardiac stenting. 4. History of [place]. 5. Questionable congestive heart failure. 6. COPD. 7. Gout. 8. Bipolar. 9. Schizophrenia. PREVIOUS SURGICAL HISTORY: 1. Cardiac stenting. 2. Umbilical hernia repair. 3. Appendectomy. SOCIAL HISTORY: Smokes 1 pack of day of cigarettes, I believe. Quit drinking earlier this year and has been going to , from what I understand, has a very remote history of marijuana use, but this is per old medical charting. Unsure if the patient continues to use this. However, his toxicology screen was negative. FAMILY HISTORY: Was unable to be obtained. The patient was unable to give this information. ALLERGIES: No known drug allergies. HOME MEDICATIONS: Aspirin 81 mg p.o. daily, Colace 100 mg p.o. b.i.d., lisinopril 20 mg p.o. daily, Depakote 1500 mg p.o. at bedtime, metformin 500 mg p.o. daily, Prilosec 20 mg p.o. daily, Zocor 40 mg p.o. at bedtime, Seroquel 600 mg p.o. at bedtime, Vitamin D3 2000 units p.o. daily, Norvasc 10 mg p.o. daily. REVIEW OF SYSTEMS: Fourteen point review of systems conducted with the patient. It is very difficult as he has very garbled speech. For the most part, is unable to contribute. Pertinent positives are listed above in the HPI. The patient denied other complaint at this time in the review of systems. However, this was limited. PHYSICAL EXAMINATION: VITAL SIGNS: Temperature 99.2 degrees, pulse 76, respirations 23, blood pressure 130/74, oxygen saturation 96% on room air. GENERAL: This is a 71-year-old male, who was originally unresponsive, is now very lethargic with garbled speech. He is oriented to person and place, disoriented to situation, and is in no acute distress. HEENT: Head is atraumatic, normocephalic. Pupils equal, round, reactive to light. Extraocular eye movement is intact. Sclera is anicteric. Conjunctivae is pink. Oral mucosa is moist. NECK: Supple. No JVD. No thyromegaly. Trachea is midline. No carotid bruit. CARDIAC: S1, S2 appreciated. No murmurs, gallops, rubs. LUNGS: Clear to auscultation bilaterally. No rhonchi, wheezes or rales. Symmetrical rise and fall respirations. ABDOMEN: Protuberant soft, nondistended, nontender. Bowel sounds present in all 4 quadrants. Normoactive. No pulsatile mass. No organomegaly. EXTREMITIES: 1+ nonpitting edema bilateral lower extremities. 2+ pedal pulses bilaterally. NEUROLOGICAL: Oriented to person, place, disoriented to time and situation. Speech is very garbled. Cranial nerves appear to be intact. However, the patient was not able to follow some commands. He regularly doses off during conversation. There was no facial asymmetry noted. I was able to hold all extremities against gravity. GENITOURINARY: [place] catheter placed, otherwise deferred. DIAGNOSTIC DATA: CT showed mild chronic ischemic white matter disease. LABORATORY DATA: CBC within normal limits. Coags within normal limits. D-dimer 0.32. ABG pH 7.40, pCO2 41, bicarb 25, pO2 60 on room air. Sodium 132, potassium 3.8, chloride 93, carbon dioxide 27, BUN 7, creatinine 0.8, glucose 159. Urine unremarkable. Toxicology screen and serum alcohol negative. ASSESSMENT AND PLAN: 1. 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 The patient stated over and over that he did not take any illegal substances. Toxicology screen is negative. He does take Seroquel 600 mg at bedtime as well as Depakote for his psychiatric illnesses. The ER provider believed that he may have taken something from a friend although this cannot be verified. We will give normal saline at 75 mL an hour with on neuro checks q.2 hours. 2. Coronary artery disease status post myocardial infarction with chest pain. The patient was originally called in his having chest pain. His troponins in the ER was negative. Recheck EKG this morning. Trend cardiac enzymes. Continue patient's aspirin 81 mg daily. We will check echocardiogram as well as the patient does have a questionable diagnosis of congestive heart failure 3. Hyperlipidemia. Continue simvastatin and check lipid profile. 4. Hypertension. Continue lisinopril and Norvasc. 5. Diabetes mellitus type 2. Hold metformin. Check hemoglobin A1c. Sliding scale insulin with fingerstick blood sugar. Dictated by FELIPE Wlyie for Jayla Harris MD cc: FELIPE Wylie MD
[2017-07-20 08:41] LABS: CK-MB 4.99 ng/mL (0.0-5.0)
[2017-07-20 08:53] VITALS: BP 145/89
[2017-07-20] MEDS ORDERED: VITAMIN D PO SCH (09:00)
[2017-07-20] MEDS ORDERED: NORVASC PO SCH (09:00)
[2017-07-20] MEDS ORDERED: COLACE PO SCH (09:00)
[2017-07-20] MEDS ORDERED: ASPIRIN PO SCH (09:00)
[2017-07-20] MEDS ORDERED: PRINIVIL PO SCH (09:00)
--- NOTE | 2017-07-20 12:35 | EKG Report ---
Test Performed on : 07/20/2017 01:17:09 AM Test Reason : unresponsive Blood Pressure : / mmHG Vent. Rate : 080 BPM Atrial Rate : 080 BPM P-R Int : 170 ms QRS Dur : 102 ms QT Int : 392 ms P-R-T Axes : 059 -24 060 degrees QTc Int : 452 ms Normal sinus rhythm. Inferior infarct (cited on or before 01-JAN-2017) Abnormal ECG When compared with ECG of 15-MAY-2017 04:32, Questionable change in initial forces of Inferior leads Unconfirmed Result
[2017-07-20] MEDS ORDERED: SEROQUEL PO SCH (21:00)
[2017-07-20] MEDS ORDERED: DEPAKOTE ER PO SCH (21:00)
[2017-07-20] MEDS ORDERED: ZOCOR PO SCH (21:00)
--- NOTE | 2017-07-21 11:46 | DISCHARGE SUMMARY ---
ADMISSION DATE: 07/20/2017 DISCHARGE DATE: 07/20/2017 FINAL DISCHARGE DIAGNOSES: 1. Encephalopathy. 2. Diabetes mellitus type 2. 3. Hypertension. 4. History of myocardial infarction. 5. Bipolar disorder. 6. Schizophrenia. HOSPITAL COURSE: Mr. Solorzano is a 71-year-old male with multiple medical problems, who was brought to the ER, after she was found minimally responsive. Upon arrival to the ER, imaging and laboratory studies were done. The imaging was unrevealing, and the patient's laboratory studies were unremarkable. There was no obvious source of infection found. The patient was treated with IV fluids, then within several hours, the patient was awake alert and oriented, and requesting to leave the hospital. Given the patient's cardiac history, an echocardiogram was ordered. However, the patient stated that he wanted to leave and left the hospital against medical advice. cc: Grecia Zelaya MD
== END 2017-07-20 09:03 | disposition left against medical advice (07) ==
LOC: ED 00:48 → SUATTDRO 05:41 → EDIPHOLD 05:41
PROVIDERS: ATTEND Internal Medicine

== ENCOUNTER 2019-03-26 19:03 | Observation (INO) ==
[2019-03-26] MEDS ORDERED: ASPIRIN PO ONE (20:25)
[2019-03-26] MEDS ORDERED: NITROGLYCERIN TOP ONE (20:25)
[2019-03-26 20:32] LABS: HEMATOCRIT 43.4 % (42.0-52.0); HEMOGLOBIN 15.2 g/dL (14.0-18.0); MCH 30.5 PG (27-31); MCV 87.1 FL (81-99); PLT 200 X1000 (130-400); RBC 4.98 XMIL (4.7-6.1); RDW 13.1 % (11.5-14.5); WBC 7.32 X1000 (4.8-10.8)
[2019-03-26 20:33] LABS: BASO# 0.02 X1000 (0.0-0.2); BASO% 0.3 % (0.0-0.8); EOS# 0.42 X1000 (0.0-0.7); EOS% 5.7 % (0.0-10.0); IMM GRAN# 0.08 X1000 (0.0-0.04); IMM GRAN% 1.1 % (0.0-0.5); LYMPH# 2.36 X1000 (1.2-3.4); LYMPH% 32.2 % (20.5-51.1); MONO# 0.72 X1000 (0.11-0.59); MONO% 9.8 % (1.7-9.3); MPV 9.3 FL (7.4-10.4); NEUT# 3.72 X1000 (1.4-6.5); NEUT% 50.9 % (42.2-75.2)
[2019-03-26 20:43] LABS: AGAP 11; BUN 4 mg/dL (8-22); CALCIUM 8.4 mg/dL (8.8-10.2); CHLORIDE 94 mmol/L (98-107); COSMO 265; CREATININE 0.7 mg/dL (0.7-1.2); ESTIMATED GFR > 60; GLUCOSE 171 mg/dL (70-104); POTASSIUM 4.6 mmol/L (3.5-5.1); SODIUM 132 mmol/L (136-145); TCO2 27 mmol/L (25-35)
[2019-03-26] MEDS ORDERED: MORPHINE IV PRN (21:36)
[2019-03-26] MEDS ORDERED: ZOFRAN IV PRN (21:36)
--- NOTE | 2019-03-26 21:48 | Diag Imaging Result Doc PS360 ---
EXAM: CHEST-1 VIEW INDICATION: chest pain TECHNIQUE: One view COMPARISON: 03/14/2019 FINDINGS: The lungs are grossly clear. There is no discrete pleural fluid collection or pneumothorax. The cardiomediastinal silhouette and central vasculature are grossly unremarkable. IMPRESSION: No evidence of acute pathology by plain radiograph. Electronically signed by Guillermo Romano 03/26/2019 9:46 PM
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
[2019-03-27 07:20] LABS: HEMATOCRIT 43.4 % (42.0-52.0); MCH 30.3 PG (27-31); MCHC 34.6 g/dL (33-37); MCV 87.7 FL (81-99); MPV 9.7 FL (7.4-10.4); RBC 4.95 XMIL (4.7-6.1); RDW 13.3 % (11.5-14.5); WBC 12.36 X1000 (4.8-10.8)
[2019-03-27 08:25] LABS: AGAP 13; ALBUMIN 3.6 g/dL (3.5-5.0); ALKALINE PHOSPHATASE 80 U/L (32-122); BUN 8 mg/dL (8-22); CALCIUM 8.7 mg/dL (8.8-10.2); CHLORIDE 95 mmol/L (98-107); COSMO 270; CREATININE 0.8 mg/dL (0.7-1.2); ESTIMATED GFR > 60; GLUCOSE 166 mg/dL (70-104); GOT 16 U/L (10-34); GPT 16 U/L (10-44); POTASSIUM 4.9 mmol/L (3.5-5.1); SODIUM 134 mmol/L (136-145); TCO2 26 mmol/L (25-35); TOTAL BILIRUBIN < 0.15 mg/dL (0.20-1.00); TOTAL PROTEIN 5.8 g/dL (6.3-8.3)
--- NOTE | 2019-03-27 10:17 | EKG Report ---
Test Performed on : 03/26/2019 7:08:06 PM Test Reason : ER Blood Pressure : / mmHG Vent. Rate : 084 BPM Atrial Rate : 084 BPM P-R Int : 168 ms QRS Dur : 100 ms QT Int : 360 ms P-R-T Axes : 046 -13 022 degrees QTc Int : 425 ms Sinus rhythm. with premature atrial complexes. Inferior infarct , age undetermined Abnormal ECG When compared with ECG of 26-JAN-2018 02:08, premature atrial complexes. are now present Nonspecific T wave abnormality now evident in Inferior leads Unconfirmed Result
[2019-03-27] MEDS ORDERED: NS 1,000 ML IV SCH (10:45)
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
[2019-03-27 11:53] VITALS: BP 133/63
[2019-03-27] MEDS ORDERED: COLACE PO ONE (12:53)
--- NOTE | 2019-03-27 14:09 | HISTORY AND PHYSICAL ---
ADDENDUM REPORT Patient was seen and examined by me. Full note dictated and discussed with nurse practitioner. Patient presented to the hospital with shortness of breath, chest pain. He has a known history of coronary disease, had an OR approximately 14 years ago with stenting. He has not had a stress test in the last several years. We will admit him to the hospital, rule out OR, and will follow. cc: Dale Nash MD
[2019-03-27] MEDS ORDERED: DEPAKOTE ER PO SCH (21:00)
[2019-03-27] MEDS ORDERED: SEROQUEL PO SCH (21:00)
[2019-03-27] MEDS ORDERED: ZOCOR PO SCH (21:00)
[2019-03-27] MEDS ORDERED: COLACE PO SCH (21:00)
--- NOTE | 2019-03-28 03:39 | DISCHARGE SUMMARY ---
ADMISSION DATE: 03/26/2019 DISCHARGE DATE: 03/27/2019 PRIMARY CARE PROVIDER: None. CONSULTATIONS: None. DISCHARGE DIAGNOSES: 1. Chest pain rule out in a patient with known coronary artery disease. The patient was made NPO for myocardial perfusion scan today. However, they were not able to get to him until tomorrow. The patient was reinitiated on a diet. We will continue his home medications. He is currently chest pain free and has had 2 sets of negative cardiac enzymes so he will be discharging home today and we will set him up for an outpatient perfusion scan. Patient was trying to leave [facility] previously, so we will go ahead and discharge him home. 2. Diabetes mellitus type 2. 3. Hypertension. 4. Chronic obstructive pulmonary disease without exacerbation. 5. Bipolar schizophrenia. HOSPITAL COURSE: Briefly, Mr. Solorzano is a 73-year-old male with a past medical history of bipolar schizophrenia, diabetes mellitus type 2, hypertension, coronary artery disease status post stenting, COPD, who reported 1 episode of chest pain yesterday after picking up some papers. He felt it on the left side of his chest. It did not radiate anywhere. There was no associated nausea, vomiting, shortness of breath, diaphoresis, palpitations, or dizziness. He felt like it was "indigestion." He took 1 nitroglycerin and the pain resolved. He has been pain free since. He has had 2 sets of negative cardiac enzymes. We set him up for a GXT today. However, they will not be able to do it until tomorrow so we will go ahead and set him up for an outpatient perfusion scan as the patient was wanting to leave [facility]. We will continue him on his home medications. He has been stable throughout his hospital course. VITAL SIGNS: At time of discharge, temperature is 97.9 degrees, heart rate 80, respirations 20, blood pressure 133/63, O2 is 94% on room air. DIET: Healthy heart. DISCHARGE MEDICATIONS: 1. Zocor 20 mg p.o. at bedtime. 2. Aspirin 81 mg p.o. daily. 3. Colace 100 mg p.o. b.i.d. 4. Norvasc 10 mg p.o. daily. 5. Quetiapine fumarate 600 mg p.o. at bedtime. 6. Vitamin D3 of 2000 units p.o. daily. 7. Depakote ER 1500 mg p.o. at bedtime. 8. Metformin 500 mg p.o. daily. 9. Prilosec 20 mg p.o. daily. 10. Prinivil 20 mg p.o. daily. FOLLOWUP: Mr. Solorzano is being discharged back home with self care. We will set him up for an outpatient perfusion scan study given his history of heart disease. We will have him follow up with his primary care provider. He can return to the ED or call 911 for any worsening of symptoms. Dictated by FELIPE Parker for Dale Nash MD cc: Dale Nash MD
[2019-03-28] MEDS ORDERED: PRILOSEC PO SCH (07:00)
[2019-03-28] MEDS ORDERED: PRINIVIL PO SCH (07:00)
[2019-03-28] MEDS ORDERED: ASPIRIN EC PO SCH (09:00)
[2019-03-28] MEDS ORDERED: VITAMIN D PO SCH (09:00)
[2019-03-28] MEDS ORDERED: NORVASC PO SCH (09:00)
--- NOTE | 2019-03-29 04:02 | DISCHARGE SUMMARY ---
ADMISSION DATE: 03/26/2019 DISCHARGE DATE: 03/27/2019 ADDENDUM: Patient seen and examined by myself. Full note dictated and discussed with nurse practitioner. Patient has a known history of bipolar schizophrenia as well as COPD, diabetes and hypertension. He has a known history of coronary disease. Presented to the hospital with chest pain. Thankfully, his symptoms improved. On discharge, he had ruled out for an IA. His symptoms of chest pain were completely gone. He was unable to schedule a stress test while he was in the hospital. Therefore, he will be discharged home and will do this as an outpatient. Patient is aware and does not want to stay in the hospital another day simply to do a stress test. Please see full note. cc: Dale Nash MD
== END 2019-03-27 14:25 | disposition home or self-care (01) ==
LOC: P.ED 19:03 → P.MEDSURG 19:03
PROVIDERS: ATTEND Family Medicine
CPT/HCPCS: 71010; 71045; 80048; 80053; 82550; 83880; 84484; 85025; 85027; 93005; 93306; A9270; J7030